=== PATIENT | male | born 1960 | race Caucasian/White ===

== ENCOUNTER → 2021-06-06 | Outpatient (CLI) | payer OTHER ==
--- NOTE | 2021-06-06 07:05 | CT ---
EXAMINATION TYPE: CT chest wo con DATE OF EXAM: 06/06/2021 COMPARISON: NONE at this institution. HISTORY: Abnormal CXR CT DLP: 320.3 mGycm. Automated Exposure Control for Dose Reduction was Utilized. TECHNIQUE: CT scan of the thorax is performed without IV contrast. FINDINGS: LUNGS: The lungs are dominantly clear, there is no concerning parenchymal mass or nodule identified. Small focus of Right basilar anterior scarring and/or chronic consolidation. No suspicious acute infi ltrate. There is no pleural effusion or pneumothorax seen bilaterally. The tracheobronchial tree is patent. MEDIASTINUM: Lack of IV contrast is noted to limit evaluation for mediastinal and especially hilar ad enopathy. There are no definitive greater than 1 cm mediastinal lymph nodes. No cardiomegaly or per icardial effusion is seen. Moderate coronary artery calcification is present. Ascending aorta measure s up to 3.9 cm in diameter. OTHER: Underlying S-shaped scoliosis. Spine is straightened on sagittal images. IMPRESSION: No acute pulmonary process. No suspicious pulmonary nodules or masses.
== END | disposition home or self-care (01) ==
LOC: RADCTMAIN 06:37
PROVIDERS: ATTEND Family Medicine
DX: R91.8 Other nonspecific abnormal finding of lung field (principal)
CPT/HCPCS: 71250